=== PATIENT | male | born 1980 ===

== ENCOUNTER → 2023-02-18 08:57 | Outpatient (POV) | payer BC, SELFPAY ==
--- NOTE | 2023-02-18 09:24 | EXP.PAIN.OV ---
HPI Data of Consult Patient: new to practice Consult date: 02/18/23 Requesting Physician: Staci Uriostegui APRN Consult Narrative Reason for consult: Low back pain History of present illness: Mr. Whitney is a 43 year old male who presents today as a new patient. He is a referral from the [place] pain [facility]. He rates his pain today a 3 out of 10. Patient states he has had low back pain for years however starting last fall he had significant worsening pain symptoms. He did go to the pain clinic there in [place] and did get an epidural that did provide significant relief of the numbness into his left leg. Patient states that now he only continues to experience the low back pain and describes it as a dull achingsensation that is worse with certain activities such as lifting. Patient denies any radiating symptoms. He states as of right now his pain is manageable and does not require any additional injections. Patient has tried physical therapy for 6 weeks with dry needling and other options however this only made his pain worse. Patient does take Aleve and ibuprofen as needed for additional relief. He does state that his low back does have more popping sensations at night when he lays down. He does state that he had gone to [place] and that they were not able to get him in for his 3-month follow-up and that is why he is establishing care here at our office. CC: Staci Uriostegui APRN [facility] Disclaimer: The information contained in this section may have been updated after the patient was seen, as this information can be updated by other users. Medical History (Updated 02/18/23 @ 09:39 by Staci Uriostegui APRN) No significant past medical history Seasonal allergies Social History Smoking Status: Unknown if ever smoked alcohol intake: never current occupational status: employed Travel in the last 8 weeks: None Review of Systems Review of Systems Review of systems:: pertinent systems reviewed and negative unless documented below Review of systems (narrative): Review of Systems: General: No recent weight changes, no fever, no sleep disturbances Respiratory: No cough, no shortness of air, no recurring pulmonary infections Cardiovascular/peripheral vascular: No chest pain, no palpitations, no edema, no shortness of breath Gastrointestinal: No new onset incontinence, normal bowel movements reported Genitourinary: No new onset incontinence Musculoskeletal: Low back pain Psychiatric: [Normal mood/affect] Neurological: [Denies weakness in extremities], [denies balance issues] Meds Home Medications and Allergies New Prescriptions to Start Prescriptions: Objective Narrative: Physical Exam: General: Alert and oriented x3, no acute distress, pleasant and cooperative Lungs: Respirations even and unlabored, symmetrical chest expansion Eyes: PERRL Musculoskeletal: Flexion and extension of lumbar [spine] somewhat guarded secondary to pain, [antalgic gait noted] Neurological: Speech clear, no gross sensory deficit /4% Oswestry index score of 2 Opioid Risk Tool Opioid Risk Tool-Male Family hx alcohol abuse: No Family hx illegal drugs: No Family hx rx drug abuse: No Personal hx alcohol abuse: No Personal hx illegal drugs: No Personal hx rx drug abuse: No Age: 16-45 years Hx of sexual abuse: No Mental health issues-ADD,OCD,Bipolar, etc: No Hx of depression: No Male Risk Score: 1 Assessment and Plan *Assessment and plan (1) Low back pain: Status: Acute Category: Medical Code(s): M54.50 - Low back pain, unspecified (2) Degenerative disc disease, lumbar: Status: Acute Category: Medical Code(s): M51.36 - Other intervertebral disc degeneration, lumbar region (3) Left leg pain: Status: Acute Category: Medical Code(s): M79.605 - Pain in left leg (4) Spinal stenosis, lumbar: Status: Acute Category: Medical Code(s): M48.061 - Spina
[2023-02-18 09:37] VITALS: BP 146/95; PULSE 71; RESP 18; O2SAT 98; BMI 28.7
== END ==
PROVIDERS: Visit Provider Nurse Practitioner Family
DX: M51.36 Other intervertebral disc degeneration, lumbar region (principal); M48.061 Spinal stenosis, lumbar region without neurogenic claudication; M79.605 Pain in left leg
CPT/HCPCS: 99202; G0463

== ENCOUNTER → 2023-05-25 08:16 | Outpatient (POV) | payer BC, SELFPAY ==
[2023-05-25 08:41] VITALS: BP 156/105; PULSE 73; RESP 18; O2SAT 99; BMI 28.5
--- NOTE | 2023-05-25 08:46 | EXP.PAIN.SOA ---
[facility] Pain Management SOAP Note Subjective:: Patient is a pleasant 43-year-old male who presents today for follow-up. We are currently treating the patient for degenerative disc disease of lumbar spine with lumbar radiculopathy symptoms, spinal stenosis lumbar spine. Today he rates his pain a 5 out of 10. Patient denies any new injury or trauma however he states over the last week he has had new pain in his neck with radiating symptoms down his right arm. Patient does describe this as an aching, throbbing sensation that is worse with increased activity. He states that he does have numbness and tingling going down his right arm. He states he has tried [id number] Tylenol and ibuprofen along with Aleve as well as Biofreeze with no additional relief. Patient does state that he has difficulty sleeping due to the pain and that it has been interfering with his ability to perform activities of daily living such as cooking or cleaning. Patient denies any previous cervical imaging and states he has never had problems at this area. Patient is not on any scheduled medications. His [place] is [phone]. Its been reviewed and appropriate. Review of Systems: General: No recent weight changes, no fever, no sleep disturbances Respiratory: No cough, no shortness of air, no recurring pulmonary infections Cardiovascular/peripheral vascular: No chest pain, no palpitations, no edema, no shortness of breath Gastrointestinal: No new onset incontinence, normal bowel movements reported Genitourinary: No new onset incontinence Musculoskeletal: Neck pain right shoulder/arm pain Psychiatric: [Normal mood/affect] Neurological: [Denies weakness in extremities], [denies balance issues] Objective:: Physical Exam: General: Alert and oriented x3, no acute distress, pleasant and cooperative Lungs: Respirations even and unlabored, symmetrical chest expansion Eyes: PERRL Musculoskeletal: Flexion and extension of cervical [spine] somewhat guarded secondary to pain, [antalgic gait noted] Neurological: Speech clear, no gross sensory deficit Assessment:: Degenerative disc disease of lumbar spine with lumbar radiculopathy symptoms, spinal stenosis lumbar spine, neck pain with cervical radiculopathy symptoms Plan:: Patient is experiencing significant pain in his neck with radiating symptoms into his right shoulder and arm. Patient did have limited range of motion of his cervical spine during today's visit. I have discussed with the patient that he may benefit from a cervical epidural steroid injection. Risk and benefits were discussed with the patient and he would like to proceed forward with this plan of care. Patient is not on any blood thinners. I have also counseled the patient that if he does not get significant relief with this injection we will look at ordering x-ray imaging as well as more advanced imaging such as an MRI in the future. I will order the patient a compounding cream at today's visit. Patient will be scheduled for a KAY C6-C7. Patient has been instructed to contact the clinic with any concerns before the next appointment. Dr. Arvizu has reviewed this note and agrees with this plan of care. This note was dictated using voice recognition software and make contain errors or omissions. [facility] Disclaimer: The information contained in this section may have been updated after the patient was seen, as this information can be updated by other users. Medical History (Updated 02/18/23 @ 09:39 by Staci Uriostegui APRN) No significant past medical history Seasonal allergies Social History (Updated 02/18/23 @ 09:40 by Staci Uriostegui APRN) Smoking Status: Unknown if ever smoked alcohol intake: never current occupational status: employed Travel in the last 8 weeks: None
== END ==
PROVIDERS: Visit Provider Nurse Practitioner Family
DX: M51.16 Intervertebral disc disorders with radiculopathy, lumbar region (principal); M48.061 Spinal stenosis, lumbar region without neurogenic claudication; M54.12 Radiculopathy, cervical region
CPT/HCPCS: 99212; G0463